=== PATIENT | female | born 1995 | race Caucasian/White ===

== ENCOUNTER 2020-10-26 02:02 | Emergency (ER) | payer OTHER ==
[2020-10-26] MEDS ORDERED: IBUPROFEN600 MG PO (03:33)
== END 2020-10-26 03:39 | disposition home or self-care (01) ==
LOC: ER1 02:02
DX: M25.571 Pain in right ankle and joints of right foot (principal); M79.671 Pain in right foot; Z90.49 Acquired absence of other specified parts of digestive tract
CPT/HCPCS: 73610; 73630; 96372; 99283; J1885